=== PATIENT | male | born 1950 | race Caucasian/White ===

== ENCOUNTER → 2023-01-27 16:41 | Outpatient (CLI) | payer OTHER, SELFPAY ==
[2023-01-27 17:55] LABS: Add Manual Diff / Slide Review NO; Basophils Absolute Auto 0 /uL (0-100); Basophils Percent Auto 0.4 % (0-2); Eosinophils Absolute Auto 100 /uL (0-450); Eosinophils Percent Auto 2.5 % (2-4); Hemoglobin 14.4 g/dL (13.5-17.5); Lymphocytes Absolute Auto 2000 /uL (1100-4500); Lymphocytes Percent Auto 33.3 % (25-40); Mean Corpuscular HGB Conc 34.2 % (30-36); Mean Corpuscular Hemoglobin 32.6 PG (26-34); Mean Corpuscular Volume 95.2 fL (80-100); Monocytes Absolute Auto 600 /uL (0-900); Monocytes Percent Auto 10.1 % (3-14); Neutrophils Absolute Auto 3200 /uL (1500-7000); Neutrophils Percent Auto 53.7 % (50-75); Platelet Count 153 X10^3/uL (150-400); Red Blood Cell Count 4.41 X10^6/uL (4.5-5.9); Red Cell Distribution Width 13.8 % (11.6-14.8); White Blood Cell Count 5.9 X10^3/uL (4.5-11.0)
[2023-01-27 18:25] LABS: Alanine Aminotransferase 45 IU/L (<50); Albumin 4.1 g/dL (3.5-5.0); Albumin Globulin Ratio 1.5 (1.0-2.8); Alkaline Phosphatase 63 U/L (38-126); Aspartate Aminotransferase 38 IU/L (17-59); BUN Creatinine Ratio 21.7 (6-22); Blood Urea Nitrogen 20 mg/dL (9-20); Calcium 9.3 mg/dL (8.4-10.2); Carbon Dioxide 28 mmol/L (22-32); Chloride 104 mmol/L (98-107); Cholesterol 235 mg/dL (140-199); Estimated Glomerular Filt Rate > 60 mL/min (>60); Globulin 2.8 g/dL (1.7-4.1); Glucose 85 mg/dL (80-110); HDL Cholesterol 54 mg/dL (40-60); HEMOLYSIS < 15 (0-50); LDL Cholesterol Calculated 164 mg/dL (<100); Lipase 32 U/L (23-300); Potassium 4.2 mmol/L (3.4-5.1); Sodium 138 mmol/L (137-145); Total Protein 6.9 g/dL (6.3-8.2); Triglycerides 87 mg/dL (35-150)
== END ==
PROVIDERS: PCP Family Medicine; Referring Provider Family Medicine; Visit Provider Family Medicine
DX: E78.00 Pure hypercholesterolemia, unspecified (principal); R10.10 Upper abdominal pain, unspecified
CPT/HCPCS: 36415; 80053; 80061; 83690; 85025

== ENCOUNTER 2023-02-12 09:59 | Day surgery (SDC) | payer OTHER, SELFPAY ==
--- NOTE | 2023-02-12 | PATH_ITS ---
[facility] Accession Number: [id number] No. of containers..03 Tissue . 01 Material submitted: . PART A: cecum - CECAL POLYP PART B: colon - ASCENDING POLYP PART C: rectum - RECTAL POLYP . 01 Diagnosis: A. Cecum, Polyp: Sessile serrated adenoma. . B. Ascending Colon, Polyp: Tubular adenoma. . C. Rectum, Polyp: Hyperplastic polyp. [facility] 02/19/2023 1111 Local . 01 Electronically signed: . Claudia Rivera MD, Pathologist NPI- [id number] . 01 Gross description: . Part A: CECAL POLYP: Received in formalin are 2 fragment(s) of dotson, soft tissue measuring 0.4 x 0.4 x 0.2 cm to 0.8 x 0.4 x 0.4 cm submitted entirely in 1 cassette(s) Part B: ASCENDING POLYP: Received in formalin are 3 fragment(s) of dotson, soft tissue measuring 0.2 x 0.2 x 0.2 cm to 0.8 x 0.4 x 0.4 cm submitted entirely in 1 cassette(s) Part C: RECTAL POLYP: Received in formalin is 1 fragment(s) of dotson, soft tissue measuring 0.2 x 0.2 x 0.2 cm submitted entirely in 1 cassette(s) /MARÍA 02/17/2023 2218 Local . 01 Pathologist provided ICD-10: D12.2, D12.0 . 01 CPT . 364737, 042042, 150574 Specimen Comment: A courtesy copy of this report has been sent to [phone] Performed at: 01 [facility] [address] [place] [address], [place], [place] [id number] MD Dario Meneses MD Phone: [phone]
[2023-02-12 10:12] VITALS: BP 151/79; PULSE 62; RESP 16; TEMP 36.4; O2SAT 99; BMI 29.0
[2023-02-12] MEDS: LACTATED RINGERS 1,000 ML 150 ML IV (10:22)
--- NOTE | 2023-02-12 11:03 | PM.HP.1 ---
History of Present Illness History of Present Illness Date Patient Seen: 02/12/23 Time Patient Seen: 11:03 Chief complaint: Screening Colonoscopy Narrative: Jose Alberto is a 72-year-old man who is here for colonoscopy. He has had polyps removed in the past. His last colonoscopy was 5 years ago. No family history of colon cancer [facility] Medical History (Updated 02/12/23 @ 11:03 by Bharath Celeste MD) Carpal tunnel syndrome (~2004) Cataracts, bilateral (~2020) Colon polyps (~2012) Elevated cholesterol (~1989) Folliculitis (~1997) Knee pain Shoulder pain Tinnitus Vertigo Surgical History (Updated 01/27/23 @ 09:39 by Lety Javed) Anesthesia History of appendectomy (~1961) History of oral surgery (~1985) History of surgery (~1998) History of tonsillectomy (~1959) Skin cancer (~2017) Family History (Updated 01/27/23 @ 09:45 by Lety Javed) Father History of heart disease Mother Cancer Brother Mental health problem Substance abuse Grandfather Stroke Grandmother History of heart disease Diabetes mellitus Grandfather Cancer Grandmother No problems noted. Social History Smoking Status: Former smoker Meds Home Medications and Allergies Home Medications Medication Instructions Recorded Confirmed Type clindamycin phosphate 1 % topical 1 applic topical DAILY 01/27/23 02/12/23 History gel minocycline 100 mg capsule 100 mg PO BID skin condition 01/27/23 02/12/23 History atorvastatin 20 mg tablet (Lipitor) 20 mg PO BEDTIME cholesterol #90 01/28/23 02/12/23 Rx tabs Allergies Allergy/AdvReac Type Severity Reaction Status Date / Time No Known Drug Allergies Allergy Verified 02/12/23 10:09 Exam Vital Signs (past 8 hours): - 02/12/23 10:12 Temperature 97.6 F Pulse Rate 62 Respiratory Rate 16 Blood Pressure 151/79 H Pulse Oximetry 99 Oxygen Delivery Method Room Air Oxygen Delivery Method Room Air Const General: healthy appearing Assessment & Plan Assessment and plan (1) Personal history of colonic polyps: Status: Acute Plan 72-year-old man here for colonoscopy for history of colon polyps. We reviewed the risks and benefits of colonoscopy and he would like to proceed.
[2023-02-12 11:41] VITALS: BP 129/66; PULSE 48; RESP 16; O2SAT 98
--- NOTE | 2023-02-12 11:42 | PM.OP.COLON ---
Operative Date/Time/Diagnoses Date of procedure: 02/12/23 Time of procedure: 11:42 Pre-op diagnosis: History of colon polyps Post-op diagnosis: same Procedure & Clinicians Study performed: Colonoscopy Same procedure as scheduled: Yes Surgeon: Bharath Celeste Procedure Notes Procedure in detail: Surgeon: Bharath Celeste MD Anesthesia: Jaron Jeong CRNA Procedure: The patient was brought to the endoscopy suite, placed in left lateral decubitus position. The patient was connected to monitoring devices. A time-out was performed. Sedation was administered. Once the patient was adequately sedated, a digital rectal exam was performed and was normal. The scope was then inserted and advanced to the cecum where the appendiceal orifice was identified and photographed. The scope was then slowly withdrawn over greater than 6 minutes. The mucosa was thoroughly inspected. There was a 7 mm polyp in the cecum adjacent to the appendiceal orifice and removed with a cold snare and sent as ?cecal polyp?. There were 2 6 mm polyps in the ascending colon removed with cold snare and sent together sent as ?ascending colon polyps?. There was a 4 mm polyp in the distal rectum removed with a cold snare and sent as ?rectal polyp?. The scope was retroflexed in the rectum. No other abnormalities were seen. The scope was straightened and removed. The patient was awakened and brought to recovery. Scope withdrawal time: 17 minutes Sedation time: 23 minutes EBL: 2 mL Findings: 7 mm polyp in the cecum, 2 6 mm polyps in the ascending colon and 4 mm polyp in the rectum Post-procedure Disposition: PACU
[2023-02-12 11:47] VITALS: BP 130/60; PULSE 50; RESP 16; TEMP 36.8; O2SAT 95
[2023-02-12 11:52] VITALS: BP 129/60; PULSE 50; RESP 16; O2SAT 98
[2023-02-12 11:58] VITALS: BP 120/70; PULSE 68; RESP 16; TEMP 36.2; O2SAT 98
== END 2023-02-12 12:15 | disposition home or self-care (01) ==
PROVIDERS: PCP Family Medicine; Referring Provider Surgery; Visit Provider Surgery
PROC: 0DJD8ZZ Inspection of Lower Intestinal Tract, Via Natural or Artificial Opening Endoscopic (ICD-10-PCS; CPT 45378; principal; 2023-02-12 11:15)
DX: Z12.11 Encounter for screening for malignant neoplasm of colon (principal); Z86.010 Personal history of colon polyps; D12.0 Benign neoplasm of cecum; D12.2 Benign neoplasm of ascending colon; K62.1 Rectal polyp
CPT/HCPCS: 45385; J2704

== ENCOUNTER → 2024-03-18 15:17 | Outpatient (CLI) | payer MEDICARE, SELFPAY ==
[2024-03-18 16:46] LABS: Alanine Aminotransferase 52 IU/L (<50); Albumin 4.4 g/dL (3.5-5.0); Albumin Globulin Ratio 1.4 (1.0-2.8); Alkaline Phosphatase 74 U/L (38-126); Aspartate Aminotransferase 42 IU/L (17-59); BUN Creatinine Ratio 17.1 (6-22); Bilirubin Total 1.2 mg/dL (0.2-1.3); Blood Urea Nitrogen 19 mg/dL (9-20); Calcium 9.6 mg/dL (8.4-10.2); Carbon Dioxide 26 mmol/L (22-32); Chloride 103 mmol/L (98-107); Cholesterol 199 mg/dL (140-199); Estimated Glomerular Filt Rate > 60 mL/min (>60); Globulin 3.2 g/dL (1.7-4.1); Glucose 89 mg/dL (80-110); HDL Cholesterol 49 mg/dL (40-60); HEMOLYSIS < 15 (0-50); LDL Cholesterol Calculated 125 mg/dL (<100); Potassium 4.3 mmol/L (3.4-5.1); Sodium 137 mmol/L (137-145); Total Protein 7.6 g/dL (6.3-8.2); Triglycerides 126 mg/dL (35-150)
== END ==
LOC: LAB 15:18
PROVIDERS: PCP Family Medicine; Referring Provider Family Medicine; Visit Provider Family Medicine
DX: Z00.00 Encounter for general adult medical examination without abnormal findings (principal); E78.5 Hyperlipidemia, unspecified
CPT/HCPCS: 36415; 80053; 80061